=== PATIENT | female | born 1960 | race Caucasian/White ===

== ENCOUNTER 2021-04-06 08:35 | Day surgery (SDC) | payer MEDICAID ==
[2021-04-04 12:33] LABS: BASOPHILS # (AUTO) 0.1 X10'3 (0-0.2); BASOPHILS % (AUTO) 1.1 % (0-1); EOSINOPHILS # (AUTO) 0.2 X10'3 (0-0.9); EOSINOPHILS % (AUTO) 3.4 % (0-6); LYMPHOCYTES # (AUTO) 1.3 X10'3 (1.1-4.8); LYMPHOCYTES % (AUTO) 26.1 % (21-51); MEAN CORPUSCULAR HEMOGLOBIN 29.8 PG (27.0-31.0); MEAN CORPUSCULAR HGB CONC 33.7 g/dL (33.0-36.5); MEAN CORPUSCULAR VOLUME 88.3 FL (78-98); MONOCYTES # (AUTO) 0.7 X10'3 (0-0.9); MONOCYTES % (AUTO) 13.7 % (2-12); NEUTROPHILS # (AUTO) 2.9 X10'3 (1.8-7.7); NEUTROPHILS % (AUTO) 55.7 % (42-75); PRE OP HEMATOCRIT 34.7 % (35.0-45.0); PRE OP HEMOGLOBIN 11.7 g/dL (12.0-16.0); PRE OP PLATELET COUNT 295 X10'3 (140-440); RED BLOOD COUNT 3.93 X10'6 (4.20-5.60); RED CELL DISTRIBUTION WIDTH 13.4 % (11.5-14.5)
[2021-04-04 13:00] LABS: ALBUMIN 3.3 G/DL (3.4-5.0); ALBUMIN/GLOBULIN RATIO 0.8 (1.1-1.5); BLOOD UREA NITROGEN 16 MG/DL (7-18); BUN/CREATININE RATIO 19.5 (6.6-38.0); CALCIUM 8.8 MG/DL (8.5-10.1); CHLORIDE 107 MMOL/L (99-107); CREATININE 0.82 MG/DL (0.40-0.90); PRE OP ALT 20 U/L (30-65); PRE OP ANION GAP 4 (8-16); PRE OP AST 17 U/L (10-37); PRE OP BILIRUB, TOTAL 0.3 MG/DL (0.0-1.0); PRE OP GLUCOSE 101 MG/DL (70-104); PRE OP POTASSIUM 4.2 MMOL/L (3.4-5.1); PRE OP SODIUM 140 MMOL/L (135-145); TOTAL CARBON DIOXIDE 29.1 MMOL/L (24-32); TOTAL PROTEIN 7.6 G/DL (6.4-8.2); eGFR 71 ML/MIN
[~2021-04-06] VITALS: Ht 167.6 cm; Wt 73.7 kg
[2021-04-06] VITALS (10 sets, daily range): BP systolic 115–151; BP diastolic 73–99
[~2021-04-06 08:35] MED LIST: ESTR42.510 VG; INDOCYANINE GREEN 25 MG/10 ML VIAL IV ONE; LOT1VCR VG; MOME45CR3 TOP; [UNRECOGNIZED DRUG - OTHER]; ceFAZolin 1,000 MG in NS 50ML IVPB IV ONE; famotidine 20mg tablet PO ONE; ringers solution, lacted 1,000 ML IV SCH
[2021-04-06] MEDS ORDERED: LIDOcaine 1% 30ml preserv. free vial ONE (10:57)
[2021-04-06] MEDS ORDERED: BUPIVAcaine 0.5% inj/PF 30 ML ONE (10:57)
[2021-04-06] MEDS ORDERED: sevoflurane 250ml liquid IH ONE (10:59)
[2021-04-06] MEDS ORDERED: morphine 2 MG/ML inj. syringe IV PRN (11:00)
[2021-04-06] MEDS ORDERED: proCHLORperazine 10 MG/2 ml inj IV PRN (11:00)
[2021-04-06] MEDS ORDERED: ringers solution, lacted 1,000 ML IV SCH (11:00)
[2021-04-06] MEDS ORDERED: meperidine/PF 25mg/ml syringe IV PRN ×3 (11:00)
[2021-04-06] MEDS ORDERED: ondansetron/PF 4mg/2ml inj IV PRN (11:00)
[2021-04-06] MEDS ORDERED: morphine 4 MG/ML inj SYRINge IV PRN (11:00)
[2021-04-06] MEDS ORDERED: midazolam 1 mg/ML 2ml injection ONE (11:04)
[2021-04-06] MEDS ORDERED: rocuronium 10mg/ml inj IV ONE (11:04)
[2021-04-06] MEDS ORDERED: fentaNYL/PF 50MCG/1 ML 2ML syringe ONE (11:04)
[2021-04-06] MEDS ORDERED: propofol inj 20 ML IV ONE (11:04)
[2021-04-06] MEDS ORDERED: dexamethasone sod phosphate 4mg/ml inj. ONE (11:15)
[2021-04-06] MEDS ORDERED: BUPIVAcaine 0.5% inj/PF 30 ml vial IJ ONE (11:28)
[2021-04-06] MEDS ORDERED: ondansetron/PF 4mg/2ml inj ONE (11:50)
[2021-04-06] MEDS ORDERED: glycopyrrolate 0.2mg/ml inj ONE (11:51)
[2021-04-06] MEDS ORDERED: neostigmine methylsulfate 1 MG/ML 10ml vial ONE (11:51)
[2021-04-06] MEDS ORDERED: HYDROcodone/acetaminophen 5mg/325mg tablet PO PRN (12:05)
--- NOTE | 2021-04-06 13:32 | NUR ---
I HAVE REVIEWED D/C INSTRUCTIONS WITH PATIENT AND THEY HAVE VERBALIZED UNDERSTANDING OF INSTRUCTIONS. PATIENT D/C HOME WITH ALL BELONGINGS AND PTS MOTHER GAVE TRANSPORT IV D/[place]MENT[place] WITH CATHETER INTACT, PT HAS COPY OF HER INSTRUCTIONS WELL PHONE NUMBERS TO CALL HER DOCTOR IF SHE HAS ANY PROBLEMS PT MET ALL DISCHARGE CRITERIA AND APPROVAL WAS RECEIVED FROM JAYSON Addendum: 04/06/21 at 1414 by Destini Robles RN Amended: Links added.
== END 2021-04-06 13:32 | disposition home or self-care (01) ==
LOC: PAS 08:35
PROVIDERS: ATTEND Surgery
DX: K80.10 Calculus of gallbladder with chronic cholecystitis without obstruction (principal); F12.90 Cannabis use, unspecified, uncomplicated; F17.290 Nicotine dependence, other tobacco product, uncomplicated; F41.9 Anxiety disorder, unspecified; F32.A Depression, unspecified; Z79.899 Other long term (current) drug therapy; Z20.822 Contact with and (suspected) exposure to COVID-19
CPT/HCPCS: 36415; 47563; 80053; 82948; 85025; 87635; 93005; C9803; J0690; J1100; J2250; J2405; J2704; J2710; J3010; J3490; J7030; J7120; S0020; S2900; Z7506; Z7508; Z7512; A4215; A4618; A7000